=== PATIENT | male | born 1960 | race Native Hawaiian/Other Pacific Islander ===

== ENCOUNTER 2022-09-26 20:22 | Outpatient (CLI) | payer OTHER ==
[2022-09-26 21:36] LABS: PLATELET COUNT 118 K/uL (142-355)
[2022-09-26 21:57] LABS: POTASSIUM 4.1 mmol/L (3.6-5.2)
== END 2022-09-26 23:59 | disposition home or self-care (01) ==
LOC: LABW 20:22
PROVIDERS: ATTEND Nurse Practitioner Family
DX: R53.83 Other fatigue (principal)
CPT/HCPCS: 36415; 80053; 80061; 82306; 82607; 83036; 84153; 84402; 84403; 85027